=== PATIENT | female | born 1945 | race Caucasian/White ===

== ENCOUNTER → 2023-11-04 08:44 | Outpatient (BNVA) | payer MEDICARE, OTHER, SELFPAY | PROVIDERS: PCP Family Medicine; Referring Provider Family Medicine; Visit Provider Student in an Organized Health Care Education/Training Program | DX: M16.11 Unilateral primary osteoarthritis, right hip (principal); M70.61 Trochanteric bursitis, right hip | CPT/HCPCS: 99203 ==

== ENCOUNTER → 2023-11-15 11:06 | Outpatient (BNVA) | payer MEDICARE, OTHER, SELFPAY | PROVIDERS: PCP Family Medicine; Referring Provider Family Medicine; Visit Provider Physician Assistant | DX: M16.11 Unilateral primary osteoarthritis, right hip (principal) | CPT/HCPCS: 20611; J1010 ==

== ENCOUNTER 2024-05-07 10:24 | Outpatient (CLI) | payer MEDICARE, OTHER, SELFPAY ==
--- NOTE | 2024-05-07 08:15 | DI.RAD_ITS ---
Exam(s) XR HIP RT COMPLETE AP PELVIS EXAM: XR HIP RT COMPLETE AP PELVIS CLINICAL HISTORY: hip pain. TECHNIQUE: 2D digital imaging was performed. Two views COMPARISON: CR XR HIP MIN 2V RT from 08/28/2023 FINDINGS: BONES: No acute fracture is present. No bony destructive lesion is seen. JOINTS: No dislocation present. The hip joint spaces are maintained. Bilateral acetabular spurring which is greatest on the right inferiorly. Spurring at the inferior margin of the right femoral hea d. Degenerative changes of the pubic symphysis and SI joints. SOFT TISSUE: Normal. IMPRESSION: Degenerative changes of the right hip greater inferiorly. DATA REPOSITORY: RADIATION DOSE DELIVERED:
== END 2024-05-07 10:25 | disposition home or self-care (01) ==
LOC: DIORS 10:25
PROVIDERS: PCP Family Medicine; Referring Provider Family Medicine; Visit Provider Student in an Organized Health Care Education/Training Program
DX: M16.11 Unilateral primary osteoarthritis, right hip (principal)
CPT/HCPCS: 99214; 73502

== ENCOUNTER 2024-11-19 13:57 | Outpatient (REF) | payer MEDICARE, OTHER, SELFPAY ==
[2024-11-19 14:09] LABS: HCT 45.6 % (36.0-46.0); HGB 14.9 g/dL (11.2-15.7); MCH 28.3 pg (27.0-33.0); MCHC 32.7 % (32.0-36.0); MCV 87 fL (80-95); MPV 10.6 fL (8.0-11.0); Platelet Count 362 10^3/uL (130-400); RBC 5.27 10^6/uL (3.93-5.22); RDW 14.6 % (11.7-14.6); RDW-SD 46.1 fL; WBC 10.58 10^3/uL (4.4-10.8)
[2024-11-19 14:11] LABS: BUN 14 mg/dL (7-18); CREATININE 0.8 mg/dL (0.55-1.02); Calcium 9.3 mg/dL (8.5-10.1); Chloride 103 mmol/L (98-107); Estimated GFR 75.84 (mL/min/1.73m2); Glucose 96 mg/dL (74-106); Potassium 4.3 mmol/L (3.5-5.1); Sodium 140 mmol/L (136-145)
== END 2024-11-19 13:58 | disposition home or self-care (01) ==
LOC: LBN 13:57
PROVIDERS: PCP Family Medicine; Visit Provider Student in an Organized Health Care Education/Training Program
DX: M16.11 Unilateral primary osteoarthritis, right hip (principal); Z01.818 Encounter for other preprocedural examination
CPT/HCPCS: 80048; 85027

== ENCOUNTER 2024-12-02 15:38 | Observation (INO) | payer MEDICARE, OTHER, SELFPAY ==
[2024-12-02] VITALS (56 sets, daily range): BP systolic 111–161; BP diastolic 35–94; PULSE 60–98; RESP 14–24; TEMP 35.6–36.8; O2SAT 93–97; BMI 34.2
--- NOTE | 2024-12-02 06:39 | W.ANESPRE ---
General Info Date of Service Date Performed: 12/02/24 Height: 5 ft 3 in Weight: 87.543 kg Body Mass Index (BMI): 34.2 Surgical Procedure: Operation Date: 12/02/24 07:50 Proposed Procedure Side Surgeon p Hip Total Hip Anterior, Actis Right Cecil Santamaria MD Meds Allergies and Home Medications Allergies Allergy/AdvReac Type Severity Reaction Status Date / Time codeine Allergy Unknown Other (See Verified 12/02/24 06:56 Comment) Home Medication ?Medication ?Instructions ?Recorded albuterol sulfate 90 mcg/actuation 2 puff inhalation Q6H PRN 09/03/23 aerosol inhaler cholecalciferol (vitamin D3) 10 10 mcg PO DAILY 09/03/23 mcg (400 unit) capsule meclizine 25 mg tablet 25 mg PO TID PRN 09/03/23 [id number] 200 mcg-vit K1 1 tab PO DAILY 09/03/23 15 mcg-lycop 150 mcg-lutein tablet (Centrum Minis Adults 50 Plus) olmesartan 40 mg tablet 40 mg PO DAILY 09/03/23 omeprazole 20 mg capsule,delayed 20 mg PO DAILY 09/03/23 release sumatriptan succinate 25 mg tablet See Rx Instructions PO .COMPLEX 09/03/23 celecoxib 200 mg capsule 200 mg PO BID PRN pain #60 caps 05/07/24 fluticasone 100 mcg-salmeterol 50 1 inh inhalation BID 05/27/24 mcg/dose blistr powdr for inhalation (Wixela Inhub) acetaminophen 500 mg tablet 1,000 mg (2 x 500 mg) PO TID #90 12/02/24 tabs aspirin 81 mg tablet,delayed 81 mg PO BID #60 tabs 12/02/24 release celecoxib 200 mg capsule 200 mg PO BID #60 caps 12/02/24 dexamethasone 4 mg tablet 4 mg PO DAILY #2 tabs 12/02/24 docusate sodium 100 mg capsule 100 mg PO BID PRN #28 caps 12/02/24 hydromorphone 2 mg tablet 1 - 2 mg (0.5 - 1 x 2 mg) PO Q4H 12/02/24 PRN pain #12 tabs Current Visit Medications: Current Medications Generic Name Dose Route Start Last Admin Trade Name Freq PRN Reason Stop Dose Admin Acetaminophen 1,000 mg 12/02/24 06:00 Acetaminophen 500 Mg Tab PO 06/18/25 23:59 PREOP ZULLY Celecoxib 400 mg 12/02/24 06:00 Celecoxib 200 Mg Cap PO 12/02/24 23:59 PREOP ZULLY Ringer's Solution 1,000 mls @ 80 mls/hr 12/02/24 06:00 IV 12/02/24 23:59 INFUSION ZULLY Cefazolin Sodium/Dextrose 2 gm in 50 mls @ 100 mls/hr 12/02/24 06:00 Ancef Duplex IVPB 12/02/24 23:59 PREOP ZULLY Tranexamic Acid/Sodium Chloride 1,000 mg in 100 mls @ 600 mls/hr 12/02/24 06:00 IVPB 12/02/24 23:59 PREOP ZULLY IV Miscellaneous Supplies 1 each 12/02/24 06:00 Iv Access IV 12/02/24 23:59 DIRECTED ZULLY Sodium Chloride 0 ml 12/02/24 06:00 Normal Saline Flush 10 Ml Syr IV 12/02/24 23:59 PRN PRN Sodium Chloride 0 ml 12/02/24 06:00 Normal Saline 10 Ml Vial IJ 12/02/24 23:59 DIRECTED PRN Sterile Water 0 ml 12/02/24 06:00 Water,Injection,Sterile 10 Ml Vial IJ 12/02/24 23:59 DIRECTED PRN PFSH Active Problems Active Problems: Problem Status Onset Code Trochanteric bursitis, right hip Acute M70.61 Osteoarthritis of right hip Chronic M16.11 Osteoporosis Chronic M81.0 Obesity Chronic E66.9 Hypertensive disorder Chronic I10 GERD (gastroesophageal reflux disease) Chronic K21.9 Asthma Chronic J45.909 Medical History Medical History (Updated 12/02/24 @ 07:10 by Lorena Meyer) PONV (postoperative nausea and vomiting) Compression fracture of lumbar vertebra L2? per patient's memory 06/09 Shoulder fracture Left Humeral head, non-surgical 06/09 Vertigo Migraine Surgical History Surgical History (Updated 12/02/24 @ 06:53 by Lorena Meyer) H/O cataract removal with insertion of prosthetic lens [place] 06/01/24, 06/08/24 H/O cystoscopy Tobacco Smoking/Tobacco Use Status: Never Passive smoking exposure: Yes Alcohol Alcohol Intake: never Substance Use Substance use: Never Substance use type: does not use Vital Signs and Lab Results Lab Results Complete Blood Count: WBC, (4.4-10.8) 10.58 10^3/uL 11/19/24, 12:15 RBC, (3.93-5.22) 5.27 10^6/uL H 11/19/24, 12:15 Hgb, (11.2-15.7) 14.9 g/dL 11/19/24, 12:15 Hct, (36.0-46.0) 45.6 % 11/19/24, 12:15 Plt Count, (130-400) 362 10^3/uL 11/19/24, 12:15 Complete Metabolic Panel: Sodium, (136-145) 140 mmol/L 11/19/24, 12:15 Potassium, (3.5-5.1) 4.3 mmol/L 11/19/24, 12:15 Chloride, (98-107) 103 mmol/L 11/19/24, 12:15 Carbon Dioxide, (21.0-32.0) 26.0 mmol/L 11/19/24, 12:15 BUN, (7-18) 14 mg/dL 11/19/24, 12:15 Creatinine, (0.55-1.02) 0.8 mg/dL 11/19/24, 12:15 Est GFR (CKD-EPI 2020), (mL/min/1.73m2) 75.84 11/19/24, 12:15 Calcium, (8.5-10.1) 9.3 mg/dL 11/19/24, 12:15 Glucose, (74-106) 96 mg/dL 11/19/24, 12:15 Anesthesia Assessment and Plan Anesthesia History Personal History: PONV Family History: No Family History of Anesthesia Complications Exercise Tolerance Exercise Tolerance: Metabolic Equivalents<4 Pertinent Negatives Pertinent Negatives: No Symptoms of GERD (controlled on omeprazole ), No Major Cardiovascular Symptoms or Complaints, No Major Pulmonary Symptoms or Complaints and No History of CVA/TIA Cardiac & Pulmonary Exam Cardiac Exam: Normal S1/S2 Heart Sounds Pulmonary Exam: Clear Bilateral Breath Sounds Implantable Cardiac Device Does patient have a Pacemaker or an ICD?: No Airway Exam Known Difficult Airway: No Mallampati Class: 3 Mouth Opening: Normal (> 3cm) Thyromental Distance: Greater than 3 cm Neck Range of Motion: Full ROM Neck Circumference: Normal Teeth Condition: Generalized Poor Dentition ASA Classification ASA Score: ASA 2 Emergency Case?: No NPO Status NPO Status: NPO Clears >2 hours, Solids >8 hours Anesthesia Plan Resuscitation Status: Full Code Anesthesia Technique: Spinal Anesthesia Airway Planned: Natural Airway Monitors Used: Standard Monitors Preoperative Comments:: 79 YO F presenting for Right ALBARO Sig PMHx: Class I obesity, GERD (omeprazole), asthma (albuterol inh), HTN (olmesartan), compression of cervical vertebrae, vertigo, migraines, never smoker.
[2024-12-02] MEDS: Lactated Ringers 1,000 ML 80 ML IV (07:00)
[2024-12-02] MEDS: Acetaminophen 500 MG TAB 1000 MG PO ×2 (07:03→19:53)
[2024-12-02] MEDS: Celecoxib 200 MG CAP 400 MG PO (07:03)
--- NOTE | 2024-12-02 07:10 | PDOC.DSDIS_ITS ---
Date of service: 12/02/24 Discharge Plan Disposition Patient Disposition: Home W/Home Health Services Condition: Good Discharge Details Reason For Visit: R THR Admit Date/Time: 12/02/24 15:38 Admit Provider: Cecil Santamaria Attending Provider: Cecil Santamaria Primary Care Provider: Demarco Ferreira Hospital Course Hospital Course: Patient was admitted to the medical/surgical floor following the procedure. The surgery was tolerated well without any notable medical, surgical, or anesthetic complications although she had a hard time mobilizing after surgery due to nausea and drowsiness. Mobilization began postoperatively on post-op day #1. She was voiding spontaneously. Vitals were stable. Physical therapy worked with the patient and was cleared for discharge home with home health services. No acute medical issues. Pain was controlled on oral regimen. Home Meds and New Rx's Prescriptions: New celecoxib 200 mg capsule 200 mg PO BID Qty: 60 0RF aspirin 81 mg tablet,delayed release (DR/EC) 81 mg PO BID Qty: 60 0RF acetaminophen 500 mg tablet 1,000 mg PO TID Qty: 90 3RF hydromorphone 2 mg tablet 1 - 2 mg PO Q4H PRN (Reason: pain) Qty: 12 0RF dexamethasone 4 mg tablet 4 mg PO DAILY Qty: 2 0RF docusate sodium 100 mg capsule 100 mg PO BID PRNQty: 28 0RF Continued celecoxib 200 mg capsule 200 mg PO BID PRN (Reason: pain) Qty: 60 0RF albuterol sulfate 90 mcg/actuation HFA aerosol inhaler 2 puff inhalation Q6H [facility]N [facility] Adults 50 Plus [phone] mcg tablet 1 tab PO DAILY meclizine 25 mg tablet 25 mg PO TID PRN olmesartan 40 mg tablet 40 mg PO DAILY omeprazole 20 mg capsule,delayed release(DR/EC) 20 mg PO DAILY sumatriptan succinate 25 mg tablet See Rx Instructions PO .COMPLEX Rx Instructions: take 1 tab at onset of headache; if no relief may repeat 1 tab after at least 2 hrs; max = 4 tabs/24 hr PO cholecalciferol (vitamin D3) 10 mcg (400 unit) capsule 10 mcg PO DAILY fluticasone propion-salmeterol [Wixela Inhub] 100-50 mcg/dose blister with device 1 inh inhalation BID Discharge Instructions Additional Instructions: Total Hip Discharge Instructions Activity: The most important activity is to walk. You should try to take short walks a few times a day. You have no restrictions on movement or positioning, but do not try to force what you do. You will find some stiffness and weakness with hip flexion (lifting your knee). Do not try to strengthen this too early, continue to practice walking and stairs and this will come. - Outpatient physical therapy can be helpful to help return you to a normal gait and improve your flexibility and strength. This can start around 2 weeks. For some patients, it?s not necessary. Usually this is determined at the time of discharge or at the first post-operative visit. - You should wear the JIMMY hose on both legs for 2 weeks. Dressing: Keep the surgical dressing in place for at least one week. After the first week it may be removed and replace with light gauze and tape or nothing. It may get wet after 3 days but avoid soaking the dressing. If it gets wet, just lightly pat dry. It is important to always keep some gauze between skin folds, especially when you are sitting. Spend some time with the wound exposed when you are lying flat as the incision does wrinkle onto itself. Medications: - You should take Tylenol and an anti-inflammatory Celebrex as your primary pain control medications. If the Celebrex is too expensive or not covered, please call the office for another alternative (Advil/Ibuprofen or Naproxen/Aleve). - You have been prescribed a stronger pain medication hydromorphone for breakthrough pain, take as needed as prescribed. - You will continue your stomach acid reduction agent omeprazole to help reduce stomach acid and reflux. - You have also been prescribed Decadron to help with post-operative nausea and pain. You will take this for two days starting tomorrow. - You will be taking Aspirin 81mg twice a day for DVT prevention unless instructed otherwise. - If you have constipation you should take Colace or Miralax (both [id number]). It takes most people 3-4 days to have a bowel movement. Follow-up: 2 weeks If you have any acute concerns or questions, please do not hesitate to contact the office at [phone]. You may contact Dr. Santamaria with any questions after hours through the hospital at [phone] or on his cell phone at [phone]. 1. Encounter Date and Reason I certify that Cristy Bone was seen by Cecil Santamaria MD on 12/03/24 and that I had a [id number] encounter with this patient that meets the physician face to face encounter requirements. 2. Clinical Findings Supporting Skilled Need and Homebound Status I certify that home health services are medically necessary, include either intermittent retirement and/or physical/speech therapy, and that this patient is homebound in that absences from the home require considerable and taxing effort and are infrequent or of short duration, or are attributable to the need to receive medical care. [X] (a) Attached documentation from encounter provides clinical findings supporting skilled need and homebound status (including what assistance patient requires to leave the home). The encounter with the patient was in whole, or in part, for the following medical condition, which is the primary reason for home health care: R THR Long-Term: Physical Therapy: Cristy is recovering from right hip replacement with pre- existing disability with ambulation and notable weakness and stiffness. She will benefit from home health PT/OT to assist with recovery of functional ambulation and increase strength for safe mobility within the home. She has no positioning restrictions and is weight-bearing as tolerated with assistive devices. Speech Therapy: Homebound: Cristy is unable to leave her home unassisted due to weakness and gait dysfunction from hip arthritis and recent hip replacement surgery. 3. Certification and Authentication I certify that I composed the above information based on my clinical judgement relating to this patient's medical condition and, if applicable, clinical findings communicated to me by the NPP or inpatient physician who performed the Home Health Referral. All further orders will be obtained through Dr. Santamaria Stand Alone Forms: Anesthesia Discharge Inst., [place].Nerve Block Instructions, Oracio Richards ([facility]) Referrals: Cecil Santamaria MD [ [facility] STAFF PHYSICIAN, Orthopaedic Surgical] - 12/17/24 11:00 am Activity:: Activity as Tolerated Equipment/Supplies:: Walker Diet:: As Tolerated Discharge Orders Discharge Orders: Discharge Order (Routine); Ordered 12/02/24 Ordered By: Gonzalez Zee DS: Diagnosis Discharge Diagnosis (1) Osteoarthritis of right hip: Status: Resolved
[2024-12-02] MEDS: ceFAZolin 2 GM/50 ML BAG IVPB (07:45)
[2024-12-02] MEDS: TRANEXAMIC ACID/SOD. CHL. 1,000 MG/100 ML BAG 600 MG IVPB (07:56)
--- NOTE | 2024-12-02 09:00 | DI.RAD_ITS ---
Exam(s) XR HIP RT IN OR EXAM: XR HIP RT IN OR CLINICAL HISTORY: right hip osteoarthritis TECHNIQUE: 2D and realtime digital imaging was performed. CONTRAST MATERIAL: Refer to procedure report. COMPARISON: CR XR HIP RT COMPLETE AP PELVIS from 05/07/2024 FINDINGS: Fluoroscopy was provided for Dr. Santamaria during the performance of a right total hip arthroplasty. Please refer to the procedure report for complete details. Ka,r=4.73 mGy IMPRESSION: RADIATION DOSE DELIVERED: 0.0 0.0 0
--- NOTE | 2024-12-02 09:21 | ROE_ITS ---
Operative Note Operative Note PRE-OP DIAGNOSIS: Right Hip Osteoarthritis POST-OP DIAGNOSIS: same PROCEDURE: Right Anterior Total Hip Arthroplasty with Intraoperative Navigation SURGEON: Cecil Santamaria GARAGE DOOR INSTALLER: Gonzalez Zee ANESTHESIA TYPE: General LMA/ETT and Spinal Refer to Anesthesia Record ESTIMATED BLOOD LOSS: 250 PATHOLOGY: none sent TOURNIQUET TIME: 0 COMPLICATIONS: None Patient was transported to: PACU Patient's condition: stable Implants: 1. Depuy Taylor Acetabular Component, 48mm 2. Depuy Acetabular Liner, [id number] 3. Depuy Actis Standard Collared Femoral Stem, Size 4 4. Depuy Altrx Ceramic Femoral Head, Size 32+5mm Indications: I have seen Cristy in clinic for symptoms of hip arthritis, confirmed with radiographic findings. SHe has exhausted nonoperative methods and was having significant limitations in daily function and desired better function and less pain. I discussed the technical details of a hip replacement. I explained the risks of the procedure to include, but not limited to, bleeding, infection, pain, stiffness, fracture, damage to nerves and vessels, damage to muscles and tendons, loosening, instability, leg length inequality, need for repeat procedure, blood clot and cardiopulmonary demise. Despite these risks, Cristy elected to proceed. Findings: There was significant signs of arthritis throughout the hip, mostly of the femoral head. Procedure Description: Cristy was greeted in the preoperative holding area where the correct side was identified and marked. The consent was reviewed with the patient and signed. The history and physical was updated. All questions were answered. She was taken back to the operating room. A spinal anesthestic was then administered. The feet were wrapped with cast padding and Coban and then placed into the boot liners and then into the boots. Care was taken to protect the skin and make sure the heels were fully down and the boots were stable. The patient was then positioned onto the HANA table. Both legs were held in a sher tral position. SCDs were applied. The patient was then slid down onto a peroneal post. Prophylactic antibiotics in the form of Cefazolin were administered. 1g of Tranxemic Acid was given intravenously within 30 minutes of incision. The right leg was then prepped with Chloraprep and draped in a standard fashion. A second prep with Chloraprep was performed prior to placement of a shower-curtain type drape with Iodine impregnated skin protection. A timeout to confirm correct identity, side and site, procedure, allergies, anesthesia, and medical concerns was performed. She was very reactiv e to anything although not having any motion of her legs. She was moving her arms quite wildly and required enough sedation that she was also than having a challenge of maintaining airway. Therefore, a general anesthetic was administered anesthesia before proceeding. An obliquely oriented incision was made starting lateral to the ASIS and running distal over the Tensor Fascia Lynette (TFL) muscle belly toward the fibular head, approximately 10cm. The skin and soft tissue was dissected sharply, through Lionel?s fascia, and to the fascia of the TFL. With the fascia and superior border of the IT band identified, the fascia was incised with a new knife just above any perforators from the IT band. The TFL muscle belly was bluntly dissected away from the fascia and moved laterally. The fat between TFL and rectus was identified to ensure the dissection was not within the TFL. Blunt dissection created space between abductors and the capsule and retractor was placed over the lateral femoral neck. The fibers of the rectus femoris tendon were identified and these were freed from the anterior capsule. A second cobra retractor was placed around the medial femoral neck. The TFL was further retracted laterally to show the deep fascia. Careful dissection through this layer identified three main crossing vessels of the lateral femoral circumflex. These were cauterized in multiple locations and then cut without any noticeable bleeding. The TFL was further released bluntly from the deep fascia to expose anterior hip capsule and fat The soft tissue orthopaedic retractor was then pl aced beneath the TFL and against sartorius and medial soft tissues to protect and retract the soft tissues. A T-capsulotomy was then performed starting at the superior lateral acetabulum and moving distally to the intertrochanteric ridge. These capsular flaps were tagged with a No. 1 Vicryl and elevated from within. The capsular flaps were released to the shoulder of the lateral neck and to the lesser trochanter to give excellent visualization of the proximal femur. A neck osteotomy was performed using an oscillating saw based on preoperative templates. This cut started in the shoulder and of the lateral neck and exited medially. The saw was at all times directed medially to avoid injury to the greater trochanter. Gross traction was applied to the leg and the osteotomy opened. The femoral head was removed with a corkscrew, making sure to protect the TFL on its exit. Traction was released after head removal. This was measured on the back table to determine the starting reamer size. Portions of the rectus obscuring visualization were minimally elevated off the superior acetabulum. An anterior retractor was placed over the anterior wall between capsule and labrum and attached to the Gripper retraction system. The femur was rotated to 90 degrees and medial capsule was fully released until the lesser trochanter was palpable and visible; the femur was returned to 30 degrees. A posterior retractor was placed similarly between capsule and labrum. This provided excellent visualization. The contents of the cotyloid fossa were removed with electrocautery and the labrum was removed with a knife. Acetabular reaming began with a 42mm reamer. This first reaming was directed anterior to posterior and medial to get down to the true floor. This was inspected and reamed until the true floor was reached. The anterior retractor was then released and entry and exit was provided by traction on the capsular flaps. I then reamed sequentially up to a 48mm reamer where good fit was obtained. The larger reamers were oriented based on anatomical reference of the anterior and lateral sky to ensure proper abduction and anteversion. Positioning and size was confirmed with the fluoroscopy. A 48mm Depuy Taylor acetabular component was selected. The acetabulum was reamed around the periphery with the selected acetabular size to prevent a rim fit. The deep tis sues were irrigated. The acetabular component was then impacted in a position of about 40-45 degrees of abduction and 15-20 degrees of anteversion, using the patient?s anatomy as the ultimate landmark. Fluoroscopy was used to confirm this. There was excellent rotary drill rig operator of the acetabular component and the inserting handle was removed. The acetabular liner, Depuy [id number] polyethylene liner, was inserted and lined up with the tines of the acetabular component. There was no soft tissue interposition. The liner was then impacted into position and confirmed to be well-seated. A portion of the emmanuel-articular cocktail was then injected around the acetabulum into the capsule and periosteum. This cocktail consisted of 123mg of Ropivacaine, 0.25mg of Epinephrine, 0.04mg of Clonidine, and 15mg of Ketorolac, diluted to 50cc. The leg was rotated to 120 degrees. Any remaining medial capsule was released until the lesser trochanter was easily palpable. A retractor was placed medially. The lateral capsule was further released into the shoulder to allow access to the greater trochanter. A Merino retractor was placed over the greater trochanter which allowed the trochanter to flip in front of the capsule for excellent exposure. The leg was brought down into maximal extension and 20 degrees of adduction while ensuring there was no impingement on the acetabulum. Any remnant capsule within the trochanter was released. Piriformis and obturator externis were identified and protected. There was excellent access to the proximal femur. The lateral neck remnant was removed with a rongeur. A blunt canal probe was used to identify the canal and trajectory for later broaching. A box osteotome initiated the broach course. A small curved rasp and a curved curette were used to work laterally. Broaching then began with a starter Actis broach. This was inserted manually around the trochanter and into the canal before mallet blows. The broach was seated to a few millimeters below the cut level based on the neck cut and the preoperative template. Sequential broaching was continued with the SafetyCertifiedse pneumatic broaching device until a tight fit was obtained with good rotational control of the femur. A trial standard neck was inserted along with a +1 trial head. The leg was brought out of extension and adduction and then reduced with traction and internal rotation. The leg was stable anteriorly in a position of 30 degrees of extension and 90 degrees of external rotation. Fluoroscopy was used to ensure there was no fracture and the stem was seated well. Leg lengths were checked with an AP pelvis and pelvic reference points. [employer] navigation system was used to confirm appropriate positioning and leg length and offset. An increase of head size to +5 corrected the offset and leg length. Once content with the desired offset and leg lengths, the leg was brought back into extension, external rotation and adduction. The periosteum and surrounding tissue was injected with remaining portion of the emmanuel-articular cocktail. The proximal femur was irrigated as well as the deep tissues. The [employer] standard collared stem, size 4, was then manually ins erted into the proximal femur making sure to control rotation. It was then malleted into position with light blows, giving breaks to allow bone expansion and decrease risk of fracture. The selected Depuy Altrx Ceramic Head, size 32+5mm, was then placed onto the clean and dry trunnion and secured with impaction onto the tapered fit. The leg was brought back out of extension and adduction and reduced with traction and internal rotation. Stability was confirmed with no shuck at 90 degrees of external rotation and 30 degrees of extension. No impingement through range of motion arc. Final x-ray images were obtained with fluoroscopy to confirm adequate positioning and no intraoperative fracture. The deep tissues were thoroughly irrigated with Surgiphor, betadine solution. This was allowed to sit in the wound for 3 minutes before being thoroughly irrigated out with normal saline. The capsule was then reapproximated with the previously placed sutures and the indirect head of the rectus was inspected and reapproximated with a #1 Vicryl. The TFL fascia was finally closed with a No. 2 Stratafix, barbed suture. Deep tissues were then reapproximated with 0 Vicryl and a running 2-0 Vicryl. The skin was closed with a running 4-0 Monocryl in a subcuticular fashion. This was reinforced with skin glue. A Mepilex silver dressing was applied. At the end of the case, all counts were correct. Cristy was transferred to the hospital bed without difficulty and suffering no apparent complication. She has a good prognosis. Physical therapy will start today and without restric tions, weight-bearing as tolerated. Aspirin 81mg BID will be used for DVT prophylaxis. Date of Procedure: 12/02/24
[2024-12-02] MEDS: HYDROmorphone 2 MG/ML SYR IVP ×3 (10:06→10:29)
[2024-12-02] MEDS: HYDROmorphone 2 MG TAB PO ×2 (11:13→22:44)
--- NOTE | 2024-12-02 12:42 | W.ANESPOSTOP ---
Postoperative Evaluation Date, Time and Location Date Performed: 12/02/24 Time Performed: 12:42 Patient Location: Day Surgery Unit Vital Signs Most Recent Imported Vital Signs: Most Recent Vital Signs Temp Pulse Resp BP Pulse Ox 36 C L 70 17 145/77 H 95 12/02/24 11:13 12/02/24 12:20 12/02/24 11:59 12/02/24 11:59 12/02/24 12:20 Pain Score Most Recent Pain Score: Most Recent Pain Score Pain Level 3 12/02/24 11:59 Assessment Mental Status: Arousable with meaningful communication Airway and Respiratory Function: Abnormal Respiratory exam (See explanation) (Weaning off 2L of O2 at time of assessment ) Cardiovascular Function: Hemodynamically Stable Hydration Status: Adequately Hydrated Nausea & Vomiting: No Nausea or Vomiting Pain: Pain is tolerable per patient Peripheral Nerve Block: Patient did not receive a nerve block Teaching Patient Teaching: Discussed Safe Use of Pain Medication Given Recent Anesthesia and Discussed Safe Use of Pain Medication Given Likely or Known CRISTIAN
--- NOTE | 2024-12-02 15:53 | PT.INNT ---
PT Notes Visit Reasons: R THR Pt approached for PT evaluation in Day Surgery unit at 1335. Pt's dtr present. Pt seated in chair reporting feeling very warm cool compress applied to neck Nurse notified.Vitals taken by RN. Pt difficulty staying awake, falling asleep requiring supplemental oxygen . after discussion with RN and MD pt to be admitted for overnight . PT evaluation to be completed when able to participate.
[2024-12-02] MEDS: ceFAZolin 1 GM/50 ML BAG IVPB ×2 (16:11→23:42)
--- NOTE | 2024-12-02 16:49 | W.PC.ACHO ---
Registration Status: ADM GERARD Primary Language: Preferred Language: Medical / Surgical History (Last Updated 12/02/24 @ 07:10 by Lorena Meyer) PONV (postoperative nausea and vomiting) Compression fracture of lumbar vertebra Shoulder fracture Vertigo Migraine (Last Updated 12/02/24 @ 06:53 by Lorena Meyer) H/O cataract removal with insertion of prosthetic lens H/O cystoscopy Most Recent Vital Signs Temperature 35.6 C L 12/02/24 15:42 Temperature Source Temporal Artery Scan 12/02/24 15:42 Pulse 98 H 12/02/24 15:42 Pulse Rhythm Regular 12/02/24 15:42 Pulse 64 12/02/24 10:36 Respiratory Rate 18 12/02/24 15:42 Respiratory Effort Normal, Non-Labored 12/02/24 15:42 Respiratory Depth Normal 12/02/24 15:42 Respiratory Pattern Normal 12/02/24 15:42 Blood Pressure 144/94 H 12/02/24 15:42 Blood Pressure Mean 110 12/02/24 15:42 Blood Pressure Position Sitting 12/02/24 13:45 Pulse Oximetry 93 12/02/24 15:42 Respiratory End-tidal CO2 28 12/02/24 10:35 Oxygen Delivery Method Room Air 12/02/24 15:42 Oxygen Flow Rate 0 12/02/24 15:42 Pain Level 3 12/02/24 13:45 Comment MD in to see patient. Decision made to stay overnight. Shazia Salcedo RN assisted A Day, RN to transfer patient back to carrier clinic. O2 remains at 94% on RA. Daughter in room. Call crystal in reach. 12/02/24 14:25 Allergies codeine Allergy (Unknown, Verified 12/02/24 06:56) Other (See Comment) Pt. states I had trouble breathing Active Medications Generic Name Dose Route Start Last Admin Trade Name Freq PRN Reason Stop Dose Admin Acetaminophen 1,000 mg 12/02/24 06:00 12/02/24 07:03 Acetaminophen 500 Mg Tab PO 12/02/24 23:59 1,000 mg PREOP ZULLY Administration Celecoxib 400 mg 12/02/24 06:00 12/02/24 07:03 Celecoxib 200 Mg Cap PO 12/02/24 23:59 400 mg PREOP ZULLY Administration Hydromorphone HCl 0 mg 12/02/24 07:07 12/02/24 11:13 Hydromorphone 2 Mg Tab PO 01/01/25 07:06 2 mg Q3H PRN PRN Administration Pain Cefazolin Sodium/Dextrose 2 gm in 50 mls @ 100 mls/hr 12/02/24 06:00 12/02/24 08:15 Ancef Duplex IVPB 12/02/24 23:59 Infused PREOP ZULLY Infusion Tranexamic Acid/Sodium Chloride 1,000 mg in 100 mls @ 600 mls/hr 12/02/24 06:00 12/02/24 08:07 IVPB 12/02/24 23:59 Infused PREOP ZULLY Infusion Cefazolin Sodium/Dextrose 1 gm in 50 mls @ 100 mls/hr 12/02/24 16:00 12/02/24 16:11 Ancef Duplex IVPB 12/03/24 08:29 100 mls/hr Q8H ZULLY Administration IV IV Catheter Type [Left Forearm Saline Lock ] IV Catheter Type [Right Wrist] Peripheral IV IV Catheter Gauge [Left 20 Forearm] IV Catheter Gauge [Right Wrist 20 ] Diet Orders Category Date Time Status Regular/Normal [DIET] Nutrition 12/02/24 Lunch Active Intake and Output - 24 Hour Total 10/07/24 10:26 thru 12/02/24 11:19 Intake Total 1006 Output Total 250 Balance 756 Weight 87.543 kg Intake: IV 906 Oral 100 Output: Estimated Blood Loss 250 Other: Emesis Description None Falls Risk Assessment History of Falls Previous History 12/02/24 15:42 Contributing Factors No Factors 12/02/24 15:42 Ambulatory Aids Uses ambulatory device 12/02/24 15:42 Fall Total Score 30 12/02/24 15:42 Level of Risk Moderate Risk 12/02/24 15:42 v v v v v v v v v Sending and/or Receiving Nurses: Please use comment section below to note any information pertinent to the patient hand-off not included above. Information / Comments: Pt brought up from day surgery at 1510. Pt was noted to be lethargic and desating in day surgery. Report received from: Lorena day surgery nurse.
[2024-12-02] MEDS: Tranexamic Acid 650 MG TAB 1300 MG PO (19:53)
[2024-12-02] MEDS: Aspirin E.C. 81 MG TABEC PO (19:53)
[2024-12-02] MEDS: Celecoxib 200 MG CAP PO (19:54)
[2024-12-02] MEDS: Normal Saline Flush 10 ML SYR IV (23:43)
[2024-12-03 03:00] VITALS: BP 101/58; PULSE 61; RESP 19; TEMP 36.2; O2SAT 94
[2024-12-03] MEDS: ceFAZolin 1 GM/50 ML BAG IVPB (07:35)
[2024-12-03] MEDS: Acetaminophen 500 MG TAB 1000 MG PO (07:35)
[2024-12-03] MEDS: Aspirin E.C. 81 MG TABEC PO (07:35)
[2024-12-03] MEDS: Celecoxib 200 MG CAP PO (07:35)
--- NOTE | 2024-12-03 07:37 | IN_ITS ---
PT Notes Visit Reasons: R THR Physical Therapy Inpatient Initial Evaluation Date: 12/03/24 Referring Doctor: Dr. Santamaria PT Orders: PT CONSULT: right hip OA, s/p ALBARO 12/02/24 Precautions: fall, standard Patient Profile/Admitting Diagnosis: Cristy is a 79 year old female with right hip OA, now s/p right ALBARO, post op day #1. She was kept on observation status overnight. PMH significant for left humerus fx 06/2024 ,managed conservatively; obesity; osteoporosis. Social History/Home Situation: Cristy lives in a multilevel home with her . Her daughter is planning to come upon her return home. She has a ramp to enter the home, and single step to get through the doorway. Reports that she requires some assistance to get up the steps at baseline. Normally ambulates without assistive device, although has been using a walker for the past few months due to increasing right hip pain. She normally sleeps in bed, but plans to sleep in her power recliner upon return home. Equipment Owned/DME: FWW, ramp Subjective: Cristy states that she is nervous about getting up. She was able to get to the commode with assistance from 2 nurses earlier this morning. Objective: General Observation: Resting in bed with IV in LUE. Supplemental O2 at 1 LPM by nasal cannula (approved for removal by nursing after demonstrating SaO2 of 92% and standing without supplemental oxygen). Mental Status: A and O x 3. Appears anxious. Pain: sore ROM: Right Upper Extremity: WFL Left Upper Extremity: Left shoulder flexion allows 135 degrees with deviation and scaption. External rotation to neutral. Internal rotation allows hand to left buttock W Right Lower Extremity: Functionally demonstrates 80 degrees hip flexion. Knee and ankle motion WFL Left Lower Extremity: WFL Strength: Right Upper Extremity: Shoulder flexion 4+/5. Biceps 4+/5. Triceps 4/5 Left Upper Extremity: Grossly 3 -/5 for all left shoulder motions Right Lower Extremity: Not assessed due to postoperative status. Patient is able demonstrate LAQ and ankle dorsiflexion difficulty Left Lower Extremity: Hip flexion 5/5. Quads 5/5. Ankle dorsiflexion 5/5. Sensation: Intact distally Bed Mobility/Transfers: Supine to sit : Min assist x 1 with head of bed elevated Sit to stand : Min assist Stand to sit CGA Gait: Ambulates 30 feet x 3, 50'x1 with FWW, CGA Balance: Static Sitting: good Dynamic Sitting: good Static Standing: fair Dynamic Standing: fair Special Tests: Mobility Limitations Standardized Measure [facility] AM-PAC 6 clicks Basic Mobility Inpatient Short Form: Raw Score: 18 CMS Score: 47% impairment Informed Consent/Education: Patient instructed in purpose of PT consult. Packet containing [] exercise protocol has been given to patient. Education and training on initial set of exercises that can be done at home have been completed with patient. Treatment: Initial evaluation (17388) Therapeutic exercises (53514): Instructed in the following exercises and provided with handouts for home completion Ankle pumps 10 times Quad sets 10 times Glutes sets 10 times LAQ 10 times Therapeutic activities (51740): Instructed in gait and transfer techniques including stair management Perform repeated sit to stand transfers, with cues for hand placement and technique, progressing to SBA for completion Instructed in stair management, with patient able to manage single 4 inch step with bilat rails and CGA Discussed strategies for management of ramp with patient and her daughter; they feel confident they can manage given her mobility today Assessment: Patient presents with clinical signs and symptoms consistent with current/admitting diagnoses that have resulted to mobility limitations, gait instability, generalized weakness, and impairment of motor control as demonstrated by the following impairment level findings: 1. Decreased strength to LLE major muscle groups 2. Impaired standing balance 3. Limitation of joint range of motion in left hip 4. Postop pain and apprehension Impairments are contributing to the following functional limitations: 1. Inability to safely ambulate without assistive device 2. Increase completion time for mobility ADL performance 3. Increased fall risk Patient is assessed as a low complexity based on the following: History:As noted above Examination: Demonstrable impairment in strength, balance, and mobility level with underlying impairments and functional limitations as documented above Presentation: stable Decision Making: low Goals: N/A. PT evaluation and 1-2 treatment sessions only for functional mobility training using recommended AD and for HEP instruction. Plan of Care/Treatment Plan: N/A. PT evaluation and 1-2 treatment session only for functional mobility training using recommended AD and for HEP instruction. DISCHARGE RECOMMENDATIONS: Discharge home with family support and outpatient PT once deemed appropriate by Ortho TREATMENT CODE/TIME: [id number] ([id number], [id number], [id number]) Thank you for the opportunity to participate in the care of this patient. Huma Reddy, PT, DPT [facility]
[2024-12-03] MEDS: Omeprazole 20 MG CAPCR PO (07:41)
[2024-12-03] MEDS: Multivitamin w/Minerals TAB 1 TAB PO (07:41)
[2024-12-03 08:23] VITALS: BP 133/55; PULSE 62; RESP 16; TEMP 36.1; O2SAT 92
--- NOTE | 2024-12-03 10:09 | W.PM.DS.N ---
Date of service: 12/03/24 Time of Service: 12:07 DS: Diagnosis Discharge Diagnosis (1) Osteoarthritis of right hip: Status: Resolved Discharge Plan Disposition Patient Disposition: Home W/Home Health Services Condition: Good Discharge Details Reason For Visit: R THR Admit Date/Time: 12/02/24 15:38 Admit Provider: Cecil Santamaria Attending Provider: Cecil Santamaria Primary Care Provider: Demarco Ferreira Hospital Course Hospital Course: Patient was admitted to the medical/surgical floor following the procedure. The surgery was tolerated well without any notable medical, surgical, or anesthetic complications although she had a hard time mobilizing after surgery due to nausea and drowsiness. She states that she felt considerably better on post-op day #2 and that the pain in her hip that she had prior to surgery is considerably better. Mobilization began postoperatively on post-op day #1. She was voiding spontaneously. Vitals were stable. Physical therapy worked with the patient and was cleared for discharge home with home health services. No acute medical issues. Pain was controlled on oral regimen. Home Meds and New Rx's Prescriptions: New celecoxib 200 mg capsule 200 mg PO BID Qty: 60 0RF aspirin 81 mg tablet,delayed release (DR/EC) 81 mg PO BID Qty: 60 0RF acetaminophen 500 mg tablet 1,000 mg PO TID Qty: 90 3RF hydromorphone 2 mg tablet 1 - 2 mg PO Q4H PRN (Reason: pain) Qty: 12 0RF dexamethasone 4 mg tablet 4 mg PO DAILY Qty: 2 0RF docusate sodium 100 mg capsule 100 mg PO BID PRNQty: 28 0RF Continued celecoxib 200 mg capsule 200 mg PO BID PRN (Reason: pain) Qty: 60 0RF albuterol sulfate 90 mcg/actuation HFA aerosol inhaler 2 puff inhalation Q6H PRN Centrum Minis Adults 50 Plus [id number] mcg tablet 1 tab PO DAILY meclizine 25 mg tablet 25 mg PO TID PRN olmesartan 40 mg tablet 40 mg PO DAILY omeprazole 20 mg capsule,delayed release(DR/EC) 20 mg PO DAILY sumatriptan succinate 25 mg tablet See Rx Instructions PO .COMPLEX Rx Instructions: take 1 tab at onset of headache; if no relief may repeat 1 tab after at least 2 hrs; max = 4 tabs/24 hr PO cholecalciferol (vitamin D3) 10 mcg (400 unit) capsule 10 mcg PO DAILY fluticasone propion-salmeterol [Wixela Inhub] 100-50 mcg/dose blister with device 1 inh inhalation BID Discharge Instructions Additional Instructions: Total Hip Discharge Instructions Activity: The most important activity is to walk. You should try to take short walks a few times a day. You have no restrictions on movement or positioning, but do not try to force what you do. You will find some stiffness and weakness with hip flexion (lifting your knee). Do not try to strengthen this too early, continue to practice walking and stairs and this will come. - Outpatient physical therapy can be helpful to help return you to a normal gait and improve your flexibility and strength. This can start around 2 weeks. For some patients, it?s not necessary. Usually this is determined at the time of discharge or at the first post-operative visit. - You should wear the JIMMY hose on both legs for 2 weeks. Dressing: Keep the surgical dressing in place for at least one week. After the first week it may be removed and replace with light gauze and tape or nothing. It may get wet after 3 days but avoid soaking the dressing. If it gets wet, just lightly pat dry. It is important to always keep some gauze between skin folds, especially when you are sitting. Spend some time with the wound exposed when you are lying flat as the incision does wrinkle onto itself. Medications: - You should take Tylenol and an anti-inflammatory Celebrex as your primary pain control medications. If the Celebrex is too expensive or not covered, please call the office for another alternative (Advil/Ibuprofen or Naproxen/Aleve). - You have been prescribed a stronger pain medication hydromorphone for breakthrough pain, take as needed as prescribed. - You will continue your stomach acid reduction agent omeprazole to help reduce stomach acid and reflux. - You have also been prescribed Decadron to help with post-operative nausea and pain. You will take this for two days starting tomorrow. - You will be taking Aspirin 81mg twice a day for DVT prevention unless instructed otherwise. - If you have constipation you should take Colace or Miralax (both [id number]). It takes most people 3-4 days to have a bowel movement. Follow-up: 2 weeks If you have any acute concerns or questions, please do not hesitate to contact the office at [phone]. You may contact Dr. Santamaria with any questions after hours through the hospital at [phone] or on his cell phone at [phone]. 1. Encounter Date and Reason I certify that Cristy Bone was seen by Cecil Santamaria MD on 12/03/24 and that I had a [id number] encounter with this patient that meets the physician face to face encounter requirements. 2. Clinical Findings Supporting Skilled Need and Homebound Status I certify that home health services are medically necessary, include either intermittent fci and/or physical/speech therapy, and that this patient is homebound in that absences from the home require considerable and taxing effort and are infrequent or of short duration, or are attributable to the need to receive medical care. [X] (a) Attached documentation from encounter provides clinical findings supporting skilled need and homebound status (including what assistance patient requires to leave the home). The encounter with the patient was in whole, or in part, for the following medical condition, which is the primary reason for home health care: R THR Nursing Home: Physical Therapy: Cristy is recovering from right hip replacement with pre-existing disability with ambulation and notable weakness and stiffness. She will benefit from home health PT/OT to assist with recovery of functional ambulation and increase strength for safe mobility within the home. She has no positioning restrictions and is weight-bearing as tolerated with assistive devices. Speech Therapy: Homebound: Cristy is unable to leave her home unassisted due to weakness and gait dysfunction from hip arthritis and recent hip replacement surgery. 3. Certification and Authentication I certify that I composed the above information based on my clinical judgement relating to this patient's medical condition and, if applicable, clinical findings communicated to me by the NPP or inpatient physician who performed the Home Health Referral. All further orders will be obtained through Dr. Santamaria Stand Alone Forms: Anesthesia Discharge Inst., [place].Nerve Block Instructions, Oracio Richards ([facility]), Nursing Discharge Form Referrals: Cecil Santamaria MD [ [facility] STAFF PHYSICIAN, Orthopaedic Surgical] - 12/17/24 11:00 am Activity:: Activity as Tolerated Equipment/Supplies:: Walker Diet:: As Tolerated Discharge Orders Discharge Orders: Discharge Order (Routine); Ordered 12/03/24 Ordered By: Gonzalez Zee Discharge Data Discharge Date/Time-TO BE ENTERED AT DEPARTURE: 12/03/24 12:48 DS: Summary Time Spent with Patient providing and/or coordinating discharge services: Less than 30 minutes Status at Discharge Functional status at discharge: uses cane/walker Overall status at discharge: patient is progressing back to baseline Mental Status: mental status grossly normal Speech and Movement: speech and movement normal Mood: congruent mood Affect: normal affect Exam Narrative Exam Narrative: R hip dressing c/d/i. No pain to passive IR/ER of the right hip. SILT LFCN/FN/Sciatic Psych Mental Status: mental status grossly normal Speech and Movement: speech and movement normal Mood: congruent mood Affect: normal affect DS: Data Vitals/I&O Vitals and I&O: Vital Signs Temperature 36.1 C L 12/03/24 08:23 Temperature Source Temporal Artery Scan 12/03/24 08:23 Pulse 62 12/03/24 08:23 Pulse Rhythm Regular 12/02/24 15:42 Pulse 64 12/02/24 10:36 Respiratory Rate 16 12/03/24 08:23 Respiratory Effort Normal, Non-Labored 12/02/24 15:42 Respiratory Depth Normal 12/02/24 15:42 Respiratory Pattern Normal 12/02/24 15:42 Blood Pressure 133/55 L 12/03/24 08:23 Blood Pressure Mean 81 12/03/24 08:23 Blood Pressure Position Sitting 12/02/24 13:45 Pulse Oximetry 92 12/03/24 08:23 Respiratory End-tidal CO2 28 12/02/24 10:35 Oxygen Delivery Method Room Air 12/03/24 08:23 Oxygen Flow Rate 0 12/03/24 08:23 Pain Level 2 12/03/24 07:50 Comment MD in to see patient. Decision made to stay overnight. Shazia Salcedo RN assisted A Day, RN to transfer patient back to stretcher. O2 remains at 94% on RA. Daughter in room. Call crystal in reach. 12/02/24 14:25 Intake & Output 12/02/24 12/02/24 12/03/24 11:59 23:59 11:59 Intake Total 1006 / 1071 65 / 1071 455 / 455 Output Total 250 / 750 500 / 750 200 / 200 Balance 756 / 321 -435 / 321 255 / 255 Weight 87.543 kg 87.5 kg Intake: IV 906 / 971 65 / 971 55 / 55 Oral 100 / 100 400 / 400 Output: Urine 500 / 500 200 / 200 Estimated Blood Loss 250 / 250 Other: Urine Color Yellow Yellow Urine Appearance Clear Clear Urine Odor Strong Emesis Description None PFSH All Active Problems History of total right hip replacement (Acute 12/02/24) Trochanteric bursitis, right hip (Acute) Osteoporosis (Chronic) Obesity (Chronic) Hypertensive disorder (Chronic) GERD (gastroesophageal reflux disease) (Chronic) Asthma (Chronic) Medical History PONV (postoperative nausea and vomiting) Compression fracture of lumbar vertebra L2? per patient's memory 06/09 Shoulder fracture Left Humeral head, non-surgical 06/09 Vertigo Migraine Surgical History H/O cataract removal with insertion of prosthetic lens [place] 06/01/24, 06/08/24 H/O cystoscopy Social History Smoking/Tobacco Use Status: Never Smoking risk assessment performed?: Yes Alcohol Intake: never Drug use: Never Substance use type: does not use Housing: house Additional Social history: [facility] Time Spent with Patient Time Spent with Patient: <45 minutes Time was spent: preparing to see the patient(eg.review tests), obtaining and/or reviewing separately otained hiistory, referring, communicating with other health rn complex care and care coordination
--- NOTE | 2024-12-03 11:34 | PDOC.CMDIS ---
Date of service: 12/03/24 Time of Service: 11:37 LACE Index Scoring Tool Questions: Length of Stay (in days): 1 Was the patient admitted via the E.D.?: No Comorbidities: Chronic Pulmonary Disease E.D. Visits: 1 Answers: Total Score: 4 Risk of Readmission: Low Risk Care Management Discharge Plan Reason for Hospitalization: right total hip replacement Discharge Plan: Cristy was in for a scheduled R total hip replacement yesterday. She stayed the night due to nausea and drowsiness post surgery. Today Cristy was up walking with PT and feels ready for discharge. She will have new services of PT through [facility]. She has good support from her daughter and her at home. Cristy will f/u with her PCP and with the orthopedic surgeon and continue per her plan of care. She will transport home with her daughter.
== END 2024-12-03 12:48 | disposition home health service (06) ==
LOC: MS 15:40
PROVIDERS: Admitting Provider Student in an Organized Health Care Education/Training Program; PCP Family Medicine; Visit Provider Student in an Organized Health Care Education/Training Program
PROC: (CPT 27130; principal; 2024-12-02 07:30)
DX: M16.11 Unilateral primary osteoarthritis, right hip (principal); E66.9 Obesity, unspecified; M81.0 Age-related osteoporosis without current pathological fracture; J45.909 Unspecified asthma, uncomplicated; K21.9 Gastro-esophageal reflux disease without esophagitis; I10 Essential (primary) hypertension; M70.61 Trochanteric bursitis, right hip; Z68.34 Body mass index [BMI] 34.0-34.9, adult
CPT/HCPCS: 27130; 20985; 94640; 96365; 96366; 96375; 97110; 97161; 97530; 73501; C1776; G0378; J0690; J1100; J1171; J2003; J2250; J2371; J2401; J2405; J2704

== ENCOUNTER 2024-12-17 10:57 | Outpatient (CLI) | payer MEDICARE, OTHER, SELFPAY ==
--- NOTE | 2024-12-17 10:15 | DI.RAD_ITS ---
Exam(s) XR HIP RT COMPLETE AP PELVIS EXAM: XR HIP RT COMPLETE AP PELVIS CLINICAL HISTORY: 1ST POST OP S/P R ALBARO. TECHNIQUE: 2D digital imaging was performed. COMPARISON: CR XR HIP RT COMPLETE AP PELVIS from 05/07/2024 XA XR HIP RT IN OR from 12/02/2024 FINDINGS: Two views There is stable position alignment of the components of the recently placed (12/02/2024) right hip prosthesis. No fracture or loosening evident. No radiographic evidence of osteomyelitis. Opposite-left hip remains unremarkable in appearance. IMPRESSION: Stable satisfactory appearance of recently placed right hip prosthesis. DATA REPOSITORY: RADIATION DOSE DELIVERED:
== END 2024-12-17 10:58 | disposition home or self-care (01) ==
LOC: DIORS 10:58
PROVIDERS: PCP Family Medicine; Visit Provider Physician Assistant
DX: Z47.1 Aftercare following joint replacement surgery (principal); Z96.641 Presence of right artificial hip joint
CPT/HCPCS: 99024; 73502

== ENCOUNTER → 2025-01-14 09:52 | Outpatient (BNVA) | payer MEDICARE, OTHER, SELFPAY | PROVIDERS: PCP Family Medicine; Referring Provider Family Medicine; Visit Provider Physician Assistant | DX: Z47.1 Aftercare following joint replacement surgery (principal); Z96.641 Presence of right artificial hip joint | CPT/HCPCS: 99024 ==

== ENCOUNTER → 2025-02-25 09:39 | Outpatient (BNVA) | payer MEDICARE, OTHER, SELFPAY | PROVIDERS: PCP Family Medicine; Referring Provider Family Medicine; Visit Provider Physician Assistant | DX: Z47.1 Aftercare following joint replacement surgery (principal); Z96.641 Presence of right artificial hip joint | CPT/HCPCS: 99024 ==